=== PATIENT | male | born 1975 | race Caucasian/White ===

== ENCOUNTER 2021-11-29 20:16 | Inpatient (IN) | payer BC, OTHER ==
[~2021-11-29] VITALS: Ht 177.8 cm; Wt 130.4 kg
[2021-11-29 21:16] LABS: Basophils # (auto) 0.1 10 ^3/uL (0-0.2); Eosinophils # (auto) 0.3 10 ^3/uL (0-0.8); Eosinophils % (auto) 2.6 % (0.0-7.0); Hematocrit 47.5 % (41.0-53.0); Hemoglobin 16.5 g/dL (13.5-17.5); Lymphocytes # (auto) 2.7 10 ^3/uL (0.4-5.4); Mean Corpuscular Hemoglobin 29.4 pg (28.0-32.0); Mean Corpuscular Hgb Conc. 34.8 g/dL (32.0-36.0); Mean Corpuscular Volume 84.6 fL (80.0-100.0); Monocytes # (auto) 0.8 10 ^3/uL (0-1.3); Monocytes % (auto) 7.3 % (0.0-12.0); Neutrophils # (auto) 6.6 10 ^3/uL (1.6-8.6); Neutrophils % (auto) 63.1 % (37.0-80.0); Nucleated Red Blood Cells % 0.2 %; Red Blood Cells 5.61 10^6/uL (4.5-5.90); White Blood Cell 10.4 10^3/uL (4.4-10.8)
[2021-11-29 21:24] LABS: Albumin 3.6 g/dL (3.4-5.0); BUN/Creatinine Ratio 11.6; Calcium 8.8 mg/dL (8.5-10.1); Potassium 4.4 mmol/L (3.5-5.1)
[2021-11-29 21:27] LABS: Bilirubin, Total 0.5 mg/dL (0.2-1.0); Total Protein 7.7 g/dL (6.4-8.2)
[2021-11-29 21:33] LABS: Partial Thromboplastin Time 24.7 sec (23.6-33.0)
[2021-11-29] MEDS ORDERED: SODIUM CHLORIDE 0.9% 1,000 ML IV ONE (23:00)
[2021-11-29] MEDS ORDERED: IOHEXOL 300 MG/ML 100ML BOTTLE IJ ONE (23:54)
[2021-11-30] MEDS ORDERED: SODIUM CHLORIDE 0.9% 1,000 ML IV ONE
[2021-11-30 02:22] LABS: Hematocrit 42.3 % (41.0-53.0); Hemoglobin 14.7 g/dL (13.5-17.5)
[2021-11-30] MEDS ORDERED: NITROGLYCERIN 0.4 MG SL TAB SL PRN (05:45)
[2021-11-30] MEDS ORDERED: ONDANSETRON HCL 4 MG/2 ML VIAL IV PRN (05:45)
[2021-11-30] MEDS ORDERED: DEXTROSE (50%) 50ML SYRG IV PRN (05:45)
[2021-11-30] MEDS ORDERED: MORPHINE SULFATE INJECTION 2 MG/ML SYRG IV PRN (05:45)
[2021-11-30] MEDS: ACCU-CHEK COMFORT CURVE STRIP VI SCH ×3 (05:59→18:40)
[2021-11-30] MEDS: InsuLIN REG 1unit/0.01ml Soln (100units/ml) SC SCH ×3 (06:02→18:32)
[2021-11-30] MEDS: hydrALAZINE HCL 20 MG/ML VL IV PRN ×2 (06:13→18:40)
[2021-11-30 08:26] LABS: Urine Bacteria NONE SEEN /hpf (None Seen); Urine Blood Negative /uL (Negative); Urine Specific Gravity 1.021 (1.001-1.035); Urine WBC 1 /hpf (0 - 3)
[2021-11-30 09:05] VITALS: BP 186/89
[2021-11-30] MEDS ORDERED: APPL188C PO (09:21)
[2021-11-30] MEDS ORDERED: GOLYTELY 4L KIT PO ONE (10:00)
[2021-11-30 13:00] VITALS: BP 154/99
[2021-11-30] MEDS: PANTOPRAZOLE 40 MG/10 ML VIAL INJ IV SCH (13:43)
[2021-11-30 16:58] VITALS: BP 160/78
[2021-11-30 22:50] VITALS: BP 152/77
[2021-12-01] MEDS: InsuLIN REG 1unit/0.01ml Soln (100units/ml) SC SCH ×3 (00:02→12:00)
[2021-12-01] MEDS: hydrALAZINE HCL 20 MG/ML VL IV PRN ×2 (04:22→12:05)
[2021-12-01 05:24] VITALS: BP 173/83
[2021-12-01 06:02] LABS: Basophils # (auto) 0 10 ^3/uL (0-0.2); Basophils % (auto) 0.5 % (0.0-2.0); Eosinophils # (auto) 0.2 10 ^3/uL (0-0.8); Hematocrit 42.7 % (41.0-53.0); Hemoglobin 15.1 g/dL (13.5-17.5); Lymphocytes # (auto) 1.8 10 ^3/uL (0.4-5.4); Lymphocytes % (auto) 23.5 % (10.0-50.0); Mean Corpuscular Hemoglobin 29.3 pg (28.0-32.0); Mean Corpuscular Hgb Conc. 35.5 g/dL (32.0-36.0); Mean Corpuscular Volume 82.7 fL (80.0-100.0); Monocytes # (auto) 0.6 10 ^3/uL (0-1.3); Monocytes % (auto) 8.2 % (0.0-12.0); Neutrophils # (auto) 5.2 10 ^3/uL (1.6-8.6); Neutrophils % (auto) 65.8 % (37.0-80.0); Nucleated Red Blood Cells % 0.1 %; Red Blood Cells 5.16 10^6/uL (4.5-5.90); Red Cell Distribution Width 12.8 % (11.8-14.3); White Blood Cell 7.9 10^3/uL (4.4-10.8)
[2021-12-01] MEDS: ACCU-CHEK COMFORT CURVE STRIP VI SCH ×3 (06:02→12:00)
[2021-12-01 06:16] LABS: Potassium 3.8 mmol/L (3.5-5.1)
[2021-12-01 06:23] LABS: Albumin 3.1 g/dL (3.4-5.0); BUN/Creatinine Ratio 9.7; Bilirubin, Total 0.7 mg/dL (0.2-1.0); Calcium 8.4 mg/dL (8.5-10.1); Total Protein 6.6 g/dL (6.4-8.2)
[2021-12-01] MEDS ORDERED: diphenhdrAMINE HCL 50 MG/1 ML VL ONE (08:22)
[2021-12-01 08:42] VITALS: BP 151/78
[2021-12-01] MEDS: PANTOPRAZOLE 40 MG/10 ML VIAL INJ IV SCH (09:59)
[2021-12-01 11:46] LABS: Cholesterol 136 mg/dL (< 200)
[2021-12-01 11:48] LABS: HDL Cholesterol 41 mg/dL (40-59); LDL Cholesterol 79 mg/dL (< 100); Triglycerides 107 mg/dL (< 150)
[2021-12-01] MEDS: MIDAZOLAM HCL 5 MG/ML-1ML VIAL ONE ×3 (12:18→12:25)
[2021-12-01] MEDS: fentaNYL CITRATE 100 MCG/2 ML VL ONE ×2 (12:18→12:22)
[2021-12-01 13:30] VITALS: BP 158/97
[2021-12-01] MEDS ORDERED: LISI20TA28 PO (14:33)
[2021-12-01] MEDS ORDERED: INSLANTI SC (14:33)
[2021-12-01] MEDS ORDERED: LISINOPRIL 20 MG TAB PO ONE (14:45)
[2021-12-01] MEDS ORDERED: LABETALOL HCL 5 MG/ML 4ML SYRINGE IV PRN (14:45)
[2021-12-01 15:31] VITALS: BP 153/105
[2021-12-01] MEDS ORDERED: IBUPROFEN 400 MG TAB PO ONE (15:45)
[2021-12-01 16:49] VITALS: BP 164/100
[2021-12-01 17:00] VITALS: BP 133/92
== END 2021-12-01 17:50 | disposition home or self-care (01) | DRG 378 ==
LOC: ER 20:23 → OVERFLOW 11-30 05:34 → WEST WING 11-30 09:06
PROVIDERS: ADMIT Nurse Practitioner; ATTEND Internal Medicine
PROC: 0DJD8ZZ Inspection of Lower Intestinal Tract, Via Natural or Artificial Opening Endoscopic (ICD-10-PCS; principal; 2021-12-01 12:10)
DX: K57.91 Diverticulosis of intestine, part unspecified, without perforation or abscess with bleeding (principal); Z68.41 Body mass index [BMI] 40.0-44.9, adult; I10 Essential (primary) hypertension; E66.01 Morbid (severe) obesity due to excess calories; Z20.822 Contact with and (suspected) exposure to COVID-19; E11.65 Type 2 diabetes mellitus with hyperglycemia; K64.8 Other hemorrhoids; Z91.14 Patient's other noncompliance with medication regimen; Z90.49 Acquired absence of other specified parts of digestive tract
CPT/HCPCS: 36415; 74177; 80053; 80061; 81001; 82962; 83036; 83690; 85014; 85018; 85025; 85610; 85730; 86850; 86900; 86901; 96361; 96374; C9113; G0378; J1815; J2250; J3490